=== PATIENT | male | born 1950 | race Caucasian/White ===

== ENCOUNTER 2023-03-21 19:17 | Inpatient (IN) | payer MEDICARE ==
[~2023-03-21] VITALS: Ht 177.8 cm; Wt 159.4 kg
[2023-03-21] MEDS ORDERED: OMEP40CA5 (19:36)
[2023-03-21] MEDS ORDERED: MONT10TA97 (19:36)
[2023-03-21] MEDS ORDERED: EZET10TA21 (19:36)
[2023-03-21] MEDS ORDERED: TORS100T (19:36)
[2023-03-21] MEDS ORDERED: GABA-282 (19:36)
[2023-03-21] MEDS ORDERED: NOVOINJ3 (19:36)
[2023-03-21] MEDS ORDERED: ISOS1TAB36 (19:36)
[2023-03-21] MEDS ORDERED: FLAS1KIT (19:36)
[2023-03-21] MEDS ORDERED: METO200T28 (19:36)
[2023-03-21] MEDS ORDERED: WARF-23 (19:36)
[2023-03-21] MEDS ORDERED: HUMU500S2 (19:36)
[2023-03-21] MEDS ORDERED: ATOR80TA59 (19:36)
[2023-03-21] MEDS ORDERED: POTA-151 (19:36)
[2023-03-21] MEDS ORDERED: AMIL25TA (19:36)
[2023-03-21] MEDS ORDERED: ALLO300T2 (19:36)
[2023-03-21] MEDS ORDERED: BENA25CA4 PO (19:58)
[2023-03-21] MEDS ORDERED: RA M500C PO (19:58)
[2023-03-21] MEDS ORDERED: ASPI81CH33 PO (19:58)
[2023-03-21] MEDS ORDERED: METO25TA PO (19:58)
[2023-03-21] MEDS ORDERED: MM S100C PO (19:58)
[2023-03-21] MEDS ORDERED: ESSETAB4 PO (19:58)
[2023-03-21] MEDS ORDERED: JANT5TAB PO (19:58)
[2023-03-21] MEDS ORDERED: OSTE1TAB2 PO (19:58)
[2023-03-21 20:10] LABS: BASO % 0.2 % (0.0-1.0); HEMATOCRIT 54.4 % (42.0-52.0); HEMOGLOBIN 18.3 g/dl (13.5-17.5); LYMPH # 1.2 10^3/uL (1.5-5.0); LYMPH % 7.4 % (24.0-44.0); MEAN CORPUSCULAR HGB CONC 33.6 g/dl (32.0-36.5); MONO # 1.7 10^3/uL (0.0-0.8); MONO % 10.4 % (2.0-8.0); NEUTROPHILS # 13.2 10^3/uL (1.5-8.5); NEUTROPHILS % 81.6 % (36.0-66.0); PLATELET COUNT, AUTOMATED 178 10^3/uL (150-450); RED BLOOD COUNT 5.91 10^6/uL (4.30-6.10); WHITE BLOOD COUNT 16.1 10^3/uL (4.0-10.0)
[2023-03-21] MEDS: METOPROLOL 5 MG/5 ML VIAL IV SCH (20:50)
[2023-03-21 21:58] LABS: VENOUS BASE EXCESS 3.9 (-2.0-2.0); VENOUS HCO3 28.3 MMOL/L (23.0-27.0); VENOUS O2 SATURATION 65.6 % (60.0-80.0); VENOUS PARTIAL PRESSURE CO2 41.7 mmHg (38.0-50.0); VENOUS PARTIAL PRESSURE O2 32.6 mmHg (30.0-50.0); VENOUS STANDARD HCO3 26.7 MMOL/L; VENOUS TOTAL CO2 29.6 MMOL/L (24.0-28.0)
[2023-03-21 22:25] LABS: CK-MB VALUE MASS 4.9 NG/ML (<3.6)
[2023-03-21 22:27] LABS: SALICYLATE LEVEL < 3.0 MG/DL (<30)
[2023-03-21 22:28] LABS: ALBUMIN 3.2 G/DL (3.2-5.2); ALKALINE PHOSPHATASE 131 U/L (46-116); ALT/SGPT 38 U/L (7.0-40); AST/SGOT 46 U/L (<34); BILIRUBIN,DIRECT 1.2 MG/DL (<0.4); BILIRUBIN,TOTAL 2.5 MG/DL (0.3-1.2); BLOOD UREA NITROGEN 76 MG/DL (9-23); CALCIUM LEVEL 9.4 MG/DL (8.3-10.6); CARBON DIOXIDE LEVEL 31 MMOL/L (20-31); CHLORIDE LEVEL 98 MMOL/L (98-107); GLOMERULAR FILTRATION RATE 33.4 (>42); GLUCOSE, FASTING 197 MG/DL (74-106); SODIUM LEVEL 135 MMOL/L (136-145); TOTAL PROTEIN 7.1 G/DL (5.7-8.2)
[2023-03-21 22:29] LABS: THYROID STIMULATING HORMONE 1.765 uIU/ML (0.55-4.78)
[2023-03-21 22:35] LABS: AMPHETAMINES LEVEL URINE NEGATIVE (NEGATIVE); BARBITURATES URINE NEGATIVE (NEGATIVE); BENZODIAZEPINES URINE NEGATIVE (NEGATIVE); CANNABINOIDS URINE NEGATIVE (NEGATIVE); COCAINE METABOLITE URINE NEGATIVE (NEGATIVE); METHADONE URINE NEGATIVE (NEGATIVE); OPIATES URINE NEGATIVE (NEGATIVE); PHENCYCLIDINE URINE NEGATIVE (NEGATIVE)
[2023-03-21 22:48] LABS: CPK CREATINE PHOSPHOKINASE 970 U/L (46-171)
[2023-03-21] MEDS: NS 1,000 ML IV ONE (23:38)
[2023-03-22 00:32] LABS: PROCALCITONIN 1.51 ng/ml
[2023-03-22 01:44] LABS: CK-MB VALUE MASS 4.8 NG/ML (<3.6)
[2023-03-22 01:45] LABS: MB/CK RELATIVE INDEX 0.49 (< OR =4)
[2023-03-22] MEDS: CEFEPIME HCL 2 GM in D5W MINI-BAG PLUS 50 ML IV ONE (02:12)
[2023-03-22] MEDS ORDERED: METO25TA PO (02:47)
[2023-03-22] MEDS ORDERED: POTA-298 PO ×2 (02:47)
[2023-03-22] MEDS ORDERED: ALLO300T2 PO (02:47)
[2023-03-22] MEDS ORDERED: NOVOINJ3 SC (02:47)
[2023-03-22] MEDS ORDERED: GABA-282 PO (02:47)
[2023-03-22] MEDS ORDERED: HUMU500S SC (02:47)
[2023-03-22] MEDS ORDERED: NITR4TASL SL (02:47)
[2023-03-22] MEDS ORDERED: MAGN500T12 PO (02:47)
[2023-03-22] MEDS ORDERED: AMIL5TAB4 PO (02:47)
[2023-03-22] MEDS ORDERED: EZET10TA21 PO (02:47)
[2023-03-22] MEDS ORDERED: WARF-18 PO (02:47)
[2023-03-22] MEDS ORDERED: HUMU500S2 SC (02:47)
[2023-03-22] MEDS ORDERED: TORS100T PO (02:47)
[2023-03-22] MEDS ORDERED: ISOS1TAB36 PO (02:47)
[2023-03-22] MEDS ORDERED: OMEG10002 PO (02:47)
[2023-03-22] MEDS ORDERED: DIPH-435 PO (02:47)
[2023-03-22] MEDS ORDERED: ATOR80TA59 PO (02:47)
[2023-03-22] MEDS ORDERED: OMEP40CA5 PO (02:47)
[2023-03-22] MEDS ORDERED: MULT-40 PO (02:47)
[2023-03-22] MEDS ORDERED: METO200T28 PO (02:47)
[2023-03-22] MEDS ORDERED: MONT10TA97 PO (02:47)
[2023-03-22] MEDS ORDERED: ASPI-615 PO (02:47)
[2023-03-22] MEDS ORDERED: WARF-23 PO (02:47)
[2023-03-22] MEDS ORDERED: VITA100093 PO (02:47)
[2023-03-22] MEDS ORDERED: DOCU100C16 PO (02:47)
[2023-03-22] MEDS ORDERED: DOXY100T PO (02:47)
[2023-03-22] MEDS ORDERED: HOME MED LIST COMPLETE! XX SCH (02:55)
[2023-03-22] MEDS ORDERED: GLUCAGON INJ 1MG VIAL SC PRN (03:50)
[2023-03-22] MEDS ORDERED: DEXTROSE 50% 50ML SYRINGE IV PRN (03:50)
[2023-03-22] MEDS ORDERED: GLUCOSE 4GM CHEW TABLET PO PRN (03:50)
[2023-03-22 06:06] LABS: INR 1.75; PROTHROMBIN TIME 19.9 SECONDS (12.5-14.5)
[2023-03-22] MEDS: GABAPENTIN 300 MG CAP PO SCH (09:46)
[2023-03-22] MEDS: INSULIN LISPRO (NovoLOG) PER UNIT SC SCH ×2 (09:50→21:00)
[2023-03-22] MEDS: DOXYCYCLINE HYCLATE 100MG TABLET PO SCH (09:50)
[2023-03-22] MEDS: METOPROLOL SUCC (TopROL XL) 100MG *XL* TAB PO SCH (09:50)
[2023-03-22] MEDS: ATORVASTATIN 20 MG TAB PO SCH (09:50)
[2023-03-22] MEDS: ASPIRIN 81MG ENTERIC TABLET PO SCH (09:50)
[2023-03-22] MEDS: allopurinoL 300 MG TAB PO SCH (09:50)
[2023-03-22 12:31] VITALS: BP 121/85; TEMP 97.2; O2SAT 100
[2023-03-22] MEDS: EZETIMIBE 10MG TABLET (ZETIA) PO SCH (12:40)
[2023-03-22 15:07] LABS: BASO % 0.4 % (0.0-1.0); EOS % 0.4 % (0.0-3.0); HEMATOCRIT 56.1 % (42.0-52.0); HEMOGLOBIN 18.5 g/dl (13.5-17.5); LYMPH % 8.9 % (24.0-44.0); MEAN CORPUSCULAR HEMOGLOBIN 31.2 pg (27.0-33.0); MEAN CORPUSCULAR VOLUME 94.6 fl (80.0-96.0); MONO # 0.9 10^3/uL (0.0-0.8); MONO % 7.8 % (2.0-8.0); NEUTROPHILS # 9.1 10^3/uL (1.5-8.5); NEUTROPHILS % 82.1 % (36.0-66.0); PLATELET COUNT, AUTOMATED 155 10^3/uL (150-450); RED BLOOD COUNT 5.93 10^6/uL (4.30-6.10); WHITE BLOOD COUNT 11.1 10^3/uL (4.0-10.0)
[2023-03-22 15:18] LABS: ERYTHROCYTE SEDIMENTATION RATE 119 mm/hr (0-20)
[2023-03-22 15:41] VITALS: BP 140/96; TEMP 97.4; O2SAT 95
[2023-03-22] MEDS: CEFEPIME HCL 2 GM in D5W 50 ML IV SCH (15:44)
[2023-03-22 15:51] LABS: C REACTIVE PROTEIN QUANTITATIV 30.8 MG/DL (<1.0)
[2023-03-22 16:44] LABS: URIC ACID 8.3 MG/DL (3.7-9.2)
[2023-03-22] MEDS: WARFARIN SOD 5MG TAB PO SCH (17:45)
[2023-03-22] MEDS: predniSONE 20 MG TAB PO ONE (17:45)
[2023-03-22] MEDS ORDERED: VANCOMYCIN HCL IV SCH (18:30)
[2023-03-22] MEDS ORDERED: FLUID PLACE HOLDER IV SCH (18:30)
[2023-03-22 19:28] VITALS: BP 147/79; TEMP 97.9; O2SAT 93
[2023-03-22] MEDS: VANCOMYCIN HCL 1,000 MG, VIAL MATE ADAPTER 1 EACH in D5W 250 ML IV SCH ×2 (20:54→22:59)
[2023-03-22] MEDS: MONTELUKAST 10 MG TAB PO SCH (20:54)
[2023-03-22] MEDS: NYSTATIN 100,000 UNITS/GM TOPICAL PWD 15GM TOP SCH (22:17)
[2023-03-22 23:00] VITALS: BP 130/81; TEMP 97.2; O2SAT 96
[2023-03-23] MEDS: VANCOMYCIN HCL 750 MG, VIAL MATE ADAPTER 1 EACH in D5W 250 ML IV SCH ×2 (03:09→04:41)
[2023-03-23 03:11] VITALS: BP 133/86; TEMP 98.4; O2SAT 93
[2023-03-23 06:25] LABS: HEMATOCRIT 48.7 % (42.0-52.0); MEAN CORPUSCULAR HEMOGLOBIN 31.4 pg (27.0-33.0); MEAN CORPUSCULAR HGB CONC 33.9 g/dl (32.0-36.5); MEAN CORPUSCULAR VOLUME 92.6 fl (80.0-96.0); PLATELET COUNT, AUTOMATED 137 10^3/uL (150-450); RED BLOOD COUNT 5.26 10^6/uL (4.30-6.10); WHITE BLOOD COUNT 10.6 10^3/uL (4.0-10.0)
[2023-03-23 06:28] LABS: HEMOGLOBIN 16.5 g/dl (13.5-17.5)
[2023-03-23 06:37] LABS: CALCIUM LEVEL 8.5 MG/DL (8.3-10.6); CREATININE FOR GFR 1.7 MG/DL (0.70-1.30); GLOMERULAR FILTRATION RATE 42.6 (>42); MAGNESIUM LEVEL 2.5 MG/DL (1.8-2.4); PHOSPHORUS LEVEL 3.9 MG/DL (2.4-5.1); POTASSIUM SERUM 4.1 MMOL/L (3.5-5.1)
[2023-03-23] MEDS: LR 1,000 ML IV SCH (07:20)
[2023-03-23 07:48] VITALS: BP 137/83; TEMP 98.2; O2SAT 93
[2023-03-23 11:59] VITALS: BP 128/78; TEMP 98.7; O2SAT 94
[2023-03-23 12:27] LABS: SOURCE, BODY FLUID RT SHOULDER; SYNOVIAL FLUID COLOR RED (COLORLESS)
[2023-03-23 15:52] VITALS: BP 124/80; TEMP 98.4; O2SAT 92
[2023-03-23 15:52] LABS: VANCOMYCIN LEVEL TROUGH 23.6 UG/ML (10.0-20.0)
[2023-03-23 17:36] LABS: C REACTIVE PROTEIN QUANTITATIV 20.4 MG/DL (<1.0)
[2023-03-23] MEDS: WARFARIN SOD 2.5MG TAB PO SCH (18:09)
[2023-03-23 19:00] LABS: ERYTHROCYTE SEDIMENTATION RATE 118 mm/hr (0-20)
[2023-03-23 20:10] VITALS: BP 131/84; TEMP 97.2; O2SAT 96
[2023-03-23] MEDS: MORPHINE 2 MG/ML 1ML VIAL IV PRN (21:12)
[2023-03-23] MEDS: VANCOMYCIN HCL 1,000 MG, VIAL MATE ADAPTER 1 EACH in D5W 250 ML IV SCH (21:12)
[2023-03-23 23:49] VITALS: BP 115/73; TEMP 98.2; O2SAT 95
[2023-03-24 04:21] VITALS: BP 147/89; TEMP 98.8; O2SAT 98
[2023-03-24 06:31] LABS: BASO % 0.6 % (0.0-1.0); EOS # 0.5 10^3/uL (0.0-0.5); EOS % 8.3 % (0.0-3.0); HEMOGLOBIN 16.2 g/dl (13.5-17.5); MEAN CORPUSCULAR HEMOGLOBIN 31.6 pg (27.0-33.0); MEAN CORPUSCULAR HGB CONC 33.8 g/dl (32.0-36.5); MEAN CORPUSCULAR VOLUME 93.8 fl (80.0-96.0); MONO # 0.6 10^3/uL (0.0-0.8); MONO % 8.8 % (2.0-8.0); NEUTROPHILS # 4.3 10^3/uL (1.5-8.5); NEUTROPHILS % 66.8 % (36.0-66.0); PLATELET COUNT, AUTOMATED 142 10^3/uL (150-450); RED BLOOD COUNT 5.12 10^6/uL (4.30-6.10); WHITE BLOOD COUNT 6.4 10^3/uL (4.0-10.0)
[2023-03-24 06:49] LABS: INR 1.7; PROTHROMBIN TIME 19.4 SECONDS (12.5-14.5)
[2023-03-24 07:00] LABS: CALCIUM LEVEL 8.3 MG/DL (8.3-10.6); CREATININE FOR GFR 1.55 MG/DL (0.70-1.30); GLOMERULAR FILTRATION RATE 47.4 (>42); MAGNESIUM LEVEL 2.3 MG/DL (1.8-2.4); PHOSPHORUS LEVEL 3.4 MG/DL (2.4-5.1); POTASSIUM SERUM 3.6 MMOL/L (3.5-5.1)
[2023-03-24 07:52] VITALS: BP 137/92; TEMP 97.2; O2SAT 99
[2023-03-24 12:09] VITALS: BP 116/86; TEMP 96.9; O2SAT 97
[2023-03-24 16:22] VITALS: BP 103/65; TEMP 97; O2SAT 95
[2023-03-24 20:10] VITALS: BP 137/78; TEMP 98.3; O2SAT 98
[2023-03-24 23:40] VITALS: BP 131/88; TEMP 97.3; O2SAT 96
[2023-03-25 04:10] VITALS: BP 122/78; TEMP 97.2; O2SAT 95
[2023-03-25 04:54] LABS: HEMATOCRIT 48.8 % (42.0-52.0); HEMOGLOBIN 16.2 g/dl (13.5-17.5); MEAN CORPUSCULAR HEMOGLOBIN 31.3 pg (27.0-33.0); MEAN CORPUSCULAR HGB CONC 33.2 g/dl (32.0-36.5); MEAN CORPUSCULAR VOLUME 94.4 fl (80.0-96.0); PLATELET COUNT, AUTOMATED 134 10^3/uL (150-450); RED BLOOD COUNT 5.17 10^6/uL (4.30-6.10); WHITE BLOOD COUNT 5.5 10^3/uL (4.0-10.0)
[2023-03-25 05:19] LABS: CALCIUM LEVEL 8.6 MG/DL (8.3-10.6); CREATININE FOR GFR 1.54 MG/DL (0.70-1.30); GLOMERULAR FILTRATION RATE 47.8 (>42); POTASSIUM SERUM 3.8 MMOL/L (3.5-5.1)
[2023-03-25 07:59] VITALS: BP 112/65; TEMP 97.4; O2SAT 92
[2023-03-25] MEDS: VANCOMYCIN HCL 750 MG, VIAL MATE ADAPTER 1 EACH in D5W 250 ML IV SCH (08:29)
[2023-03-25 11:53] VITALS: BP 114/66; TEMP 97.2; O2SAT 92
[2023-03-25 15:58] VITALS: BP 121/55; TEMP 97.4; O2SAT 93
[2023-03-25 19:42] VITALS: BP 122/79; TEMP 97.8; O2SAT 97
[2023-03-25] MEDS: ACETAMINOPHEN TAB 650MG DOSE (2X325MG) PO PRN (21:06)
[2023-03-25 23:49] VITALS: BP 152/72; TEMP 97.8; O2SAT 95
[2023-03-26 03:42] VITALS: BP 132/68; TEMP 97.8; O2SAT 98
[2023-03-26 05:57] LABS: HEMATOCRIT 48.2 % (42.0-52.0); HEMOGLOBIN 16.3 g/dl (13.5-17.5); MEAN CORPUSCULAR HEMOGLOBIN 31.5 pg (27.0-33.0); MEAN CORPUSCULAR HGB CONC 33.8 g/dl (32.0-36.5); MEAN CORPUSCULAR VOLUME 93.2 fl (80.0-96.0); PLATELET COUNT, AUTOMATED 131 10^3/uL (150-450); RED BLOOD COUNT 5.17 10^6/uL (4.30-6.10)
[2023-03-26 06:06] LABS: INR 1.56; PROTHROMBIN TIME 18.2 SECONDS (12.5-14.5)
[2023-03-26 06:21] LABS: CALCIUM LEVEL 8.3 MG/DL (8.3-10.6); CREATININE FOR GFR 1.3 MG/DL (0.70-1.30); GLOMERULAR FILTRATION RATE 58.1 (>42); POTASSIUM SERUM 3.5 MMOL/L (3.5-5.1)
[2023-03-26 07:37] VITALS: BP 139/76; TEMP 96.9; O2SAT 96
[2023-03-26 09:18] VITALS: BP 139/76
== END 2023-03-26 12:46 | disposition home or self-care (01) | DRG 558 ==
LOC: M ED 19:17 → EDBD 19:17 → M ED INP 03-22 03:42 → M PCU 03-22 12:18
PROVIDERS: ADMIT Family Medicine; ATTEND Family Medicine
PROC: 0R9J3ZZ Drainage of Right Shoulder Joint, Percutaneous Approach (ICD-10-PCS; principal; 2023-03-23)
DX: M62.82 Rhabdomyolysis (principal); N17.9 Acute kidney failure, unspecified; I50.32 Chronic diastolic (congestive) heart failure; I13.0 Hypertensive heart and chronic kidney disease with heart failure and stage 1 through stage 4 chronic kidney disease, or unspecified chronic kidney disease; R65.10 Systemic inflammatory response syndrome (SIRS) of non-infectious origin without acute organ dysfunction; N18.4 Chronic kidney disease, stage 4 (severe); E87.20 Acidosis, unspecified; M25.011 Hemarthrosis, right shoulder; N49.2 Inflammatory disorders of scrotum; K21.9 Gastro-esophageal reflux disease without esophagitis; G47.33 Obstructive sleep apnea (adult) (pediatric); Z86.718 Personal history of other venous thrombosis and embolism; Z86.711 Personal history of pulmonary embolism; I25.10 Atherosclerotic heart disease of native coronary artery without angina pectoris; M10.9 Gout, unspecified; I48.91 Unspecified atrial fibrillation; Z79.01 Long term (current) use of anticoagulants; E11.42 Type 2 diabetes mellitus with diabetic polyneuropathy; Z98.41 Cataract extraction status, right eye; Z98.42 Cataract extraction status, left eye; Z87.891 Personal history of nicotine dependence; Z79.82 Long term (current) use of aspirin; Z79.899 Other long term (current) drug therapy; Z79.4 Long term (current) use of insulin; Z95.2 Presence of prosthetic heart valve

== ENCOUNTER 2023-04-01 17:07 | Inpatient (IN) | payer MEDICARE ==
[~2023-04-01] VITALS: Ht 177.8 cm; Wt 155.0 kg
[~2023-04-01 17:07] MED LIST: ALLO300T2; ALLO300T2 PO; AMIL25TA; AMIL5TAB4 PO; ASPI-615 PO; ASPI81CH33 PO; ATOR80TA59; ATOR80TA59 PO; BENA25CA4 PO; DIPH-435 PO; DOCU100C16 PO; DOXY100T PO; ESSETAB4 PO; EZET10TA21; EZET10TA21 PO; FLAS1KIT; GABA-282; GABA-282 PO; HUMU500S SC; HUMU500S2; HUMU500S2 SC; ISOS1TAB36; ISOS1TAB36 PO; JANT5TAB PO; MAGN500T12 PO; METO200T28; METO200T28 PO; METO25TA PO; MM S100C PO; MONT10TA97; MONT10TA97 PO; MULT-40 PO; NITR4TASL SL; NOVOINJ3; NOVOINJ3 SC; OMEG10002 PO; OMEP40CA5; OMEP40CA5 PO; OSTE1TAB2 PO; POTA-151; POTA-298 PO; RA M500C PO; TORS100T; TORS100T PO; VITA100093 PO; WARF-18 PO; WARF-23; WARF-23 PO
[2023-04-01 17:56] LABS: INR 2.48
[2023-04-01 17:59] LABS: BASO % 0.3 % (0.0-1.0); EOS # 0.2 10^3/uL (0.0-0.5); EOS % 1.4 % (0.0-3.0); HEMATOCRIT 53.9 % (42.0-52.0); LYMPH # 1.6 10^3/uL (1.5-5.0); LYMPH % 11.4 % (24.0-44.0); MEAN CORPUSCULAR HEMOGLOBIN 30.8 pg (27.0-33.0); MEAN CORPUSCULAR HGB CONC 33.4 g/dl (32.0-36.5); MEAN CORPUSCULAR VOLUME 92.3 fl (80.0-96.0); MONO # 1.1 10^3/uL (0.0-0.8); MONO % 7.7 % (2.0-8.0); NEUTROPHILS # 10.8 10^3/uL (1.5-8.5); NEUTROPHILS % 78.8 % (36.0-66.0); PLATELET COUNT, AUTOMATED 272 10^3/uL (150-450); RED BLOOD COUNT 5.84 10^6/uL (4.30-6.10); WHITE BLOOD COUNT 13.7 10^3/uL (4.0-10.0)
[2023-04-01 18:29] LABS: ALBUMIN 3.2 G/DL (3.2-5.2); BILIRUBIN,DIRECT 0.5 MG/DL (<0.4); CALCIUM LEVEL 8.9 MG/DL (8.3-10.6); CREATININE FOR GFR 2.62 MG/DL (0.70-1.30); GLOMERULAR FILTRATION RATE 25.9 (>42); POTASSIUM SERUM 2.8 MMOL/L (3.5-5.1); THYROID STIMULATING HORMONE 2.529 uIU/ML (0.55-4.78)
[2023-04-01 18:51] LABS: MAGNESIUM LEVEL 2.6 MG/DL (1.8-2.4)
[2023-04-01 18:54] LABS: RSV AMPLIFICATION NEGATIVE (NEGATIVE)
[2023-04-01] MEDS: POTASSIUM CHLORIDE 10MEQ SR TABLET PO ONE (19:06)
[2023-04-01] MEDS: KCL 10MEQ/100ML SWI (KRUN) 10 MEQ in IV 1 EA IV ONE (19:07)
[2023-04-01] MEDS: NS 500 ML IV ONE (19:07)
[2023-04-01] MEDS: NS 1,000 ML IV SCH ×2 (20:15→23:57)
[2023-04-01] MEDS ORDERED: HOME MED LIST COMPLETE! XX SCH (22:00)
[2023-04-01] MEDS ORDERED: DEXTROSE 50% 50ML SYRINGE IV PRN (22:40)
[2023-04-01] MEDS ORDERED: GLUCOSE 4GM CHEW TABLET PO PRN (22:40)
[2023-04-01] MEDS ORDERED: GLUCAGON INJ 1MG VIAL SC PRN (22:40)
[2023-04-01] MEDS ORDERED: ONDANSETRON 4MG 2ML VIAL IV PRN (22:40)
[2023-04-01] MEDS ORDERED: NITROGLYCERIN 0.4MG SUBL TABLET SL PRN (22:40)
[2023-04-02] VITALS (22 sets, daily range): BP systolic 113–138; BP diastolic 58–72; TEMP 97–97.8; O2SAT 92–99
[2023-04-02 00:14] LABS: ABG BASE EXCESS 5.5 (-2.0-2.0); ABG HCO3 29.6 MMOL/L (22.0-26.0); ABG O2 SATURATION 92.4 % (95.0-99.0); ABG PARTIAL PRESSURE CO2 41.1 mmHg (35.0-45.0); ABG PARTIAL PRESSURE O2 62.6 mmHg (75.0-100.0); ABG STANDARD HCO3 29.2 MMOL/L. (22.0-26.0); ABG TOTAL CO2 30.8 MMOL/L (23.0-31.0); ABG pH (ARTERIAL) 7.475 UNITS (7.350-7.450)
[2023-04-02 04:29] LABS: TOTAL PROTEIN,RANDOM URINE 7.6 MG/DL (0.0-14.0)
[2023-04-02 04:34] LABS: CREATININE,RANDOM URINE 51.4 MG/DL
[2023-04-02 04:49] LABS: INR 2.56; PROTHROMBIN TIME 26.6 SECONDS (12.5-14.5)
[2023-04-02] MEDS: NYSTATIN 100,000 UNITS/GM TOPICAL PWD 15GM TOP SCH (05:47)
[2023-04-02 08:32] LABS: HEMATOCRIT 53.8 % (42.0-52.0); HEMOGLOBIN 17.9 g/dl (13.5-17.5); MEAN CORPUSCULAR HEMOGLOBIN 31.9 pg (27.0-33.0); MEAN CORPUSCULAR HGB CONC 33.3 g/dl (32.0-36.5); MEAN CORPUSCULAR VOLUME 95.9 fl (80.0-96.0); PLATELET COUNT, AUTOMATED 204 10^3/uL (150-450); RED BLOOD COUNT 5.61 10^6/uL (4.30-6.10); WHITE BLOOD COUNT 9.6 10^3/uL (4.0-10.0)
[2023-04-02 08:42] LABS: CALCIUM LEVEL 8.8 MG/DL (8.3-10.6); CREATININE FOR GFR 2.32 MG/DL (0.70-1.30); GLOMERULAR FILTRATION RATE 29.8 (>42)
[2023-04-02] MEDS: INSULIN LISPRO (NovoLOG) PER UNIT SC SCH ×2 (08:44→21:15)
[2023-04-02] MEDS: PANTOPRAZOLE 40MG TAB (PROTONIX) PO SCH (08:45)
[2023-04-02] MEDS: ATORVASTATIN 20 MG TAB PO SCH (08:45)
[2023-04-02] MEDS: EZETIMIBE 10MG TABLET (ZETIA) PO SCH (08:45)
[2023-04-02] MEDS: ASPIRIN 81MG ENTERIC TABLET PO SCH (08:45)
[2023-04-02] MEDS: ISOSORBIDE MON. (IMDUR) 60MG XR TAB PO SCH (08:45)
[2023-04-02] MEDS: allopurinoL 300 MG TAB PO SCH (08:46)
[2023-04-02] MEDS: METOPROLOL SUCC (TopROL XL) 100MG *XL* TAB PO SCH (08:46)
[2023-04-02] MEDS: ACETAMINOPH W/CODEINE #3 TAB UD PO PRN (08:56)
[2023-04-02] MEDS: MAGNESIUM OXIDE 400MG TAB (MAG-OX) PO SCH (09:00)
[2023-04-02 10:23] LABS: C REACTIVE PROTEIN QUANTITATIV 7.9 MG/DL (<1.0)
[2023-04-02] MEDS: GABAPENTIN 100 MG CAP PO SCH (11:38)
[2023-04-02] MEDS: MULTIVITAMINS/MINERALS THERAP 1 TAB PO SCH (11:38)
[2023-04-02] MEDS: POTASSIUM CHLORIDE 10MEQ SR TABLET PO SCH (11:38)
[2023-04-02] MEDS: WARFARIN SOD 2.5MG TAB PO SCH (17:39)
[2023-04-02] MEDS: PEN NEEDLE (USE WITH HUMULIN U-500 INSULIN PEN) XX SCH (21:00)
[2023-04-02] MEDS: HUMULIN R U-500 KWIKPEN 500UNITS/ML 3ML SYRINGE SC SCH (21:00)
[2023-04-03 05:18] VITALS: BP 124/73; TEMP 97.7; O2SAT 94
[2023-04-03 06:15] LABS: HEMATOCRIT 49.6 % (42.0-52.0); HEMOGLOBIN 16.7 g/dl (13.5-17.5); MEAN CORPUSCULAR HEMOGLOBIN 31.8 pg (27.0-33.0); MEAN CORPUSCULAR HGB CONC 33.7 g/dl (32.0-36.5); MEAN CORPUSCULAR VOLUME 94.5 fl (80.0-96.0); PLATELET COUNT, AUTOMATED 212 10^3/uL (150-450); RED BLOOD COUNT 5.25 10^6/uL (4.30-6.10); WHITE BLOOD COUNT 7.9 10^3/uL (4.0-10.0)
[2023-04-03 06:41] LABS: ALBUMIN 2.5 G/DL (3.2-5.2); CALCIUM LEVEL 8.4 MG/DL (8.3-10.6); CREATININE FOR GFR 1.92 MG/DL (0.70-1.30); MAGNESIUM LEVEL 2.4 MG/DL (1.8-2.4); PHOSPHORUS LEVEL 2.8 MG/DL (2.4-5.1); POTASSIUM SERUM 3.5 MMOL/L (3.5-5.1)
[2023-04-03] MEDS: OMEPRAZOLE 20MG CAP PO SCH (08:17)
[2023-04-03] MEDS: PEN NEEDLE (USE WITH HUMULIN U-500 INSULIN PEN) XX SCH (08:18)
[2023-04-03] MEDS: HUMULIN R U-500 KWIKPEN 500UNITS/ML 3ML SYRINGE SC SCH ×2 (08:18→21:47)
[2023-04-03 09:00] VITALS: O2SAT 93
[2023-04-03] MEDS: HUMULIN R U-500 KWIKPEN 500UNITS/ML 3ML SYRINGE SC ONE (13:37)
[2023-04-03] MEDS: PEN NEEDLE (USE WITH HUMULIN U-500 INSULIN PEN) XX ONE (13:37)
[2023-04-03 14:00] VITALS: BP 120/73; TEMP 97.9; O2SAT 95
[2023-04-03] MEDS: WARFARIN SOD 5MG TAB PO SCH (17:04)
[2023-04-03 20:04] VITALS: BP 137/70; TEMP 98.2; O2SAT 95
[2023-04-03 22:19] VITALS: O2SAT 94
[2023-04-04 04:47] VITALS: BP 106/62; TEMP 98.2; O2SAT 92
[2023-04-04 06:25] LABS: ALBUMIN 2.5 G/DL (3.2-5.2); CALCIUM LEVEL 8.6 MG/DL (8.3-10.6); CREATININE FOR GFR 1.48 MG/DL (0.70-1.30); MAGNESIUM LEVEL 2.2 MG/DL (1.8-2.4); POTASSIUM SERUM 3.2 MMOL/L (3.5-5.1)
[2023-04-04 08:19] LABS: INR 1.92; PROTHROMBIN TIME 21.3 SECONDS (12.5-14.5)
[2023-04-04] MEDS: predniSONE 20 MG TAB PO SCH (09:54)
[2023-04-04] MEDS: POTASSIUM CHLORIDE 10MEQ SR TABLET PO ONE (09:55)
[2023-04-04] MEDS: HUMULIN R U-500 KWIKPEN 500UNITS/ML 3ML SYRINGE SC SCH (10:01)
[2023-04-04 11:46] LABS: C REACTIVE PROTEIN QUANTITATIV 7.1 MG/DL (<1.0); URIC ACID 7.1 MG/DL (3.7-9.2)
[2023-04-04] MEDS: allopurinoL 100 MG TAB PO SCH (12:30)
[2023-04-04] MEDS: VITAMIN D 1,000 INTERNATIONAL UNITS TABLET PO SCH (12:30)
[2023-04-04] MEDS: HumuLIN N INSULIN (NovoLIN N) PER UNIT SC SCH (12:30)
[2023-04-04 12:41] LABS: HEMOGLOBIN A1c 8.1 % (4.0-6.0)
[2023-04-04 14:00] VITALS: BP 130/77; TEMP 97.7; O2SAT 92
[2023-04-04 15:09] LABS: RHEUMATOID FACTOR QUANT 8.1 IU/ML (<14)
[2023-04-04] MEDS ORDERED: TORSEMIDE (DEMADEX) 50 MG PER 1/2 TAB PO SCH (17:00)
[2023-04-04 17:15] LABS: HEMATOCRIT 49.5 % (42.0-52.0); HEMOGLOBIN 16.8 g/dl (13.5-17.5); MEAN CORPUSCULAR HEMOGLOBIN 31.6 pg (27.0-33.0); MEAN CORPUSCULAR HGB CONC 33.9 g/dl (32.0-36.5); MEAN CORPUSCULAR VOLUME 93.2 fl (80.0-96.0); PLATELET COUNT, AUTOMATED 254 10^3/uL (150-450); RED BLOOD COUNT 5.31 10^6/uL (4.30-6.10); WHITE BLOOD COUNT 8.2 10^3/uL (4.0-10.0)
[2023-04-04] MEDS: TORSEMIDE 100 MG TAB PO SCH (17:20)
[2023-04-04] MEDS: INSULIN LISPRO (NovoLOG) PER UNIT SC ONE ×2 (17:22→21:30)
[2023-04-04] MEDS: WARFARIN SOD 1MG TAB PO ONE (17:26)
[2023-04-04 17:31] VITALS: BP 113/74
[2023-04-04 20:39] VITALS: BP 138/77; TEMP 97.9; O2SAT 89; O2SAT 92
[2023-04-04] MEDS: GABAPENTIN 300 MG CAP PO SCH (21:29)
[2023-04-05 06:22] VITALS: BP 106/67; TEMP 97.9; O2SAT 95
[2023-04-05 07:21] LABS: ALBUMIN 2.4 G/DL (3.2-5.2); CALCIUM LEVEL 8.6 MG/DL (8.3-10.6); CREATININE FOR GFR 1.47 MG/DL (0.70-1.30); GLOMERULAR FILTRATION RATE 50.4 (>42); MAGNESIUM LEVEL 1.8 MG/DL (1.8-2.4); PHOSPHORUS LEVEL 2.5 MG/DL (2.4-5.1); POTASSIUM SERUM 3.6 MMOL/L (3.5-5.1)
[2023-04-05] MEDS: HumuLIN N INSULIN (NovoLIN N) PER UNIT SC SCH (08:38)
[2023-04-05] MEDS: POTASSIUM CHLORIDE 10MEQ SR TABLET PO SCH (08:43)
[2023-04-05 14:00] VITALS: BP 132/77; TEMP 97.9; O2SAT 94
[2023-04-05 20:30] VITALS: BP 124/76; TEMP 97; O2SAT 98
[2023-04-06 05:30] VITALS: BP 140/73; TEMP 97.9; O2SAT 95
[2023-04-06 06:45] LABS: ALBUMIN 2.5 G/DL (3.2-5.2); CALCIUM LEVEL 8.3 MG/DL (8.3-10.6); CREATININE FOR GFR 1.45 MG/DL (0.70-1.30); GLOMERULAR FILTRATION RATE 51.2 (>42); MAGNESIUM LEVEL 1.6 MG/DL (1.8-2.4); POTASSIUM SERUM 3.2 MMOL/L (3.5-5.1)
[2023-04-06 08:59] VITALS: BP 140/73
[2023-04-06 09:47] VITALS: O2SAT 94
[2023-04-06 14:00] VITALS: BP 138/72; TEMP 97.7; O2SAT 94
== END 2023-04-06 17:52 | disposition home or self-care (01) | DRG 683 ==
LOC: M ED 17:07 → EDBD 17:07 → M ED INP 22:36 → ENRESERV 23:33 → M PCU 04-02 00:17 → M MSPAV 04-02 19:38
PROVIDERS: ADMIT Internal Medicine; ATTEND Family Medicine
PROC: B246ZZZ Ultrasonography of Right and Left Heart (ICD-10-PCS; principal; 2023-04-02)
DX: N17.9 Acute kidney failure, unspecified (principal); E87.3 Alkalosis; I50.32 Chronic diastolic (congestive) heart failure; I13.0 Hypertensive heart and chronic kidney disease with heart failure and stage 1 through stage 4 chronic kidney disease, or unspecified chronic kidney disease; Z68.43 Body mass index [BMI] 50.0-59.9, adult; Z66 Do not resuscitate; R26.89 Other abnormalities of gait and mobility; R29.6 Repeated falls; I48.0 Paroxysmal atrial fibrillation; N18.30 Chronic kidney disease, stage 3 unspecified; E11.42 Type 2 diabetes mellitus with diabetic polyneuropathy; R25.1 Tremor, unspecified; G47.33 Obstructive sleep apnea (adult) (pediatric); M32.0 Drug-induced systemic lupus erythematosus; M48.061 Spinal stenosis, lumbar region without neurogenic claudication; E86.0 Dehydration; E66.01 Morbid (severe) obesity due to excess calories; K21.00 Gastro-esophageal reflux disease with esophagitis, without bleeding; G89.29 Other chronic pain; I25.10 Atherosclerotic heart disease of native coronary artery without angina pectoris; M10.9 Gout, unspecified; E87.6 Hypokalemia; E78.5 Hyperlipidemia, unspecified; E11.22 Type 2 diabetes mellitus with diabetic chronic kidney disease; Z79.01 Long term (current) use of anticoagulants; Z79.4 Long term (current) use of insulin; Z79.2 Long term (current) use of antibiotics; Z79.899 Other long term (current) drug therapy; Z11.52 Encounter for screening for COVID-19; Z86.711 Personal history of pulmonary embolism; Z86.718 Personal history of other venous thrombosis and embolism